=== PATIENT | female | born 1970 | race African-American/Black ===

== ENCOUNTER 2025-09-11 16:23 | Emergency (ER) | payer MEDICAID ==
[~2025-09-11] VITALS: Ht 175.3 cm; Wt 82.0 kg
[2025-09-11 16:26] VITALS: O2SAT 100
[2025-09-11] MEDS: MAGNESIUM/ALUMINUM HYDROXIDE/SIMETHICONE 30ML UDC PO ONE (16:52)
[2025-09-11] MEDS: PANTOPRAZOLE SODIUM 40 MG/VIAL IV ONE (16:52)
[2025-09-11 17:34] LABS: BASOPHILS % 0.8 % (0.0-2.0); EOSINOPHILS % 3.7 % (0.0-5.0); HEMATOCRIT. 38.3 % (36.0-48.0); HEMOGLOBIN. 12.7 g/dL (12.0-16.0); LYMPHOCYTES % 21.3 % (20.0-50.0); MONOCYTES % 7.3 % (2.0-8.0); NEUTROPHILS % 66.9 % (40.0-76.0); RED BLOOD CELL COUNT 4.37 mill/uL (4.2-5.4); RED CELL DISTRIBUTION WIDTH 13.5 % (11.6-14.6)
[2025-09-11 17:45] LABS: CREATININE 0.8 mg/dL (0.6-1.0); PROTEIN TOTAL 6.5 g/dL (6.0-8.3); UREA NITROGEN BLOOD 11 mg/dL (9-23)
[2025-09-11 17:46] LABS: ASPARTATE AMINOTRANSFERASE 14 IU/L (<34)
[2025-09-11 17:47] LABS: BILIRUBIN DIRECT < 0.1 mg/dL (<=3.0); BILIRUBIN TOTAL 0.2 mg/dL (0.1-1.0)
[2025-09-11] MEDS: SODIUM CHLORIDE 0.9% 1,000 ML IV ONE (17:51)
[2025-09-11] MEDS: MORPHINE SULFATE 4 MG/ML INJ (FOR IV/IM USE) IV ONE (17:51)
[2025-09-11] MEDS: ONDANSETRON HCL 4MG/2ML INJ IV ONE (17:51)
[2025-09-11 18:16] LABS: MEAN PLATELET VOLUME 9.5 fl (7.4-10.4); PLATELET 227 x1000/uL (130-400)
[2025-09-11] MEDS: KETOROLAC 15MG/ML VIAL IV ONE (18:36)
[2025-09-11] MEDS ORDERED: ONDA4TAB50 MT (18:47)
[2025-09-11] MEDS ORDERED: PROT40 MT (18:47)
[2025-09-11 18:52] VITALS: BP 132/72; PULSE 89; RESP 18; TEMP 37; O2SAT 100
== END 2025-09-11 19:20 | disposition home or self-care (01) ==
LOC: ER 16:23
DX: R10.33 Periumbilical pain (principal); I10 Essential (primary) hypertension; Z79.899 Other long term (current) drug therapy; Z90.710 Acquired absence of both cervix and uterus; Z88.5 Allergy status to narcotic agent
CPT/HCPCS: 80076; 80048; 83690; 85025; 36415; 74176; 96361; 96365; 96375; 99285; J1885; J2405; J2470; J2270; J7030; Z7610 ×3; A4606